=== PATIENT | female | born 1995 | race African-American/Black ===

== ENCOUNTER 2016-09-23 22:11 | Emergency (ER) | payer OTHER ==
[~2016-09-23] VITALS: Ht 170.2 cm; Wt 99.6 kg
[~2016-09-23 22:11] MED LIST: NAPROSYN500 MG PO
[2016-09-23 23:42] VITALS: BP 133/72
== END 2016-09-23 23:42 | disposition home or self-care (01) ==
LOC: EME 22:11
DX: J02.9 Acute pharyngitis, unspecified (principal)
CPT/HCPCS: 87651 90; 99281; 99284

== ENCOUNTER 2016-11-23 12:17 | Emergency (ER) | payer OTHER ==
[~2016-11-23] VITALS: Ht 170.2 cm; Wt 99.0 kg
[2016-11-23] MEDS ORDERED: ZYRTEC10 M2 PO (14:31)
[2016-11-23] MEDS ORDERED: NAPROSYN500 MG PO (14:31)
[2016-11-23] MEDS ORDERED: MUCUS ER600 MG PO (14:31)
[2016-11-23] MEDS ORDERED: FLONASE16 G1 BOTH NARES (14:31)
[2016-11-23 14:56] VITALS: BP 113/69
== END 2016-11-23 14:57 | disposition home or self-care (01) ==
LOC: EME 12:17
DX: J06.9 Acute upper respiratory infection, unspecified (principal); J02.8 Acute pharyngitis due to other specified organisms; H93.8X1 Other specified disorders of right ear; J32.9 Chronic sinusitis, unspecified
CPT/HCPCS: 87651 90; 99281; 99283